=== PATIENT | female | born 1960 | race Caucasian/White ===

== ENCOUNTER 2022-02-12 14:04 | Emergency (ER) | payer BC ==
[~2022-02-12] VITALS: Ht 177.8 cm; Wt 79.4 kg
[2022-02-12 15:46] LABS: BASOPHILS PERCENT AUTO 2 % (0-2); EOSINOPHILS ABSOLUTE AUTO 0.08 K/mm3 (0.00-0.68); EOSINOPHILS PERCENT AUTO 2 % (0-6); Hematocrit 43.2 % (33.0-51.0); Hemoglobin 14.6 g/dL (11.5-16.0); IMMATURE GRAN ABSOLUTE AUTO 0.01 K/mm3 (0.00-0.10); IMMATURE GRAN PERCENT AUTO 0 % (0-1); LYMPHOCYTES ABSOLUTE AUTO 0.82 K/mm3 (0.84-5.20); LYMPHOCYTES PERCENT AUTO 17 % (21-46); MONOCYTES PERCENT AUTO 4 % (4-13); Mean Corpuscular HGB Conc 33.8 g/dL (31.5-36.5); Mean Corpuscular Volume 98 fL (80-100); Mean Platelet Volume 9.3 fL (9.1-12.4); NEUTROPHILS ABSOLUTE AUTO 3.59 K/mm3 (1.96-9.15); NEUTROPHILS PERCENT AUTO 75 % (41-73); Platelet Count 194 K/mm3 (150-400); RDW Coefficient Variation 13.1 % (11.7-14.2); RDW Standard Deviation 46.6 fL (35.1-46.3); Red Blood Cell Count 4.42 M/mm3 (3.80-5.20)
[2022-02-12 16:15] LABS: Albumin, Blood 3.6 g/dL (3.4-5.0); Albumin/Globulin Ratio 0.9 (0.8-1.8); Bilirubin, Total 1.4 mg/dL (0.1-1.0); Bun/Creatinine Ratio 18.6 (12.0-20.0); Calcium, Blood 9.3 mg/dL (8.5-10.1); Creatinine, Blood 0.7 mg/dL (0.40-1.00); Globulin, Blood 4.1 g/dL (2.2-4.0); Potassium, Blood 4.2 mmol/L (3.5-5.5); Total Protein, Blood 7.7 g/dL (6.4-8.2)
[2022-02-12 19:28] LABS: Magnesium, Blood 2.2 mg/dL (1.6-2.4); Thyroid Stimulating Hormone 3.03 uIU/mL (0.360-4.800)
[2022-02-12] MEDS ORDERED: CARV6.25 PO (20:55)
== END 2022-02-12 21:19 | disposition home or self-care (01) ==
LOC: ER 14:04
PROVIDERS: Physician Assistant; Student in an Organized Health Care Education/Training Program
DX: I48.91 Unspecified atrial fibrillation (principal); Z91.14 Patient's other noncompliance with medication regimen; Z79.899 Other long term (current) drug therapy
CPT/HCPCS: 71046; 80053; 83735; 84443; 85025; 93005; 93010

== ENCOUNTER 2022-08-17 15:06 | Inpatient (IN) | payer BC ==
[~2022-08-17] VITALS: Ht 177.8 cm; Wt 93.1 kg
[~2022-08-17 15:06] MED LIST: CARV6.25 PO
[2022-08-17 15:49] LABS: BASOPHILS ABSOLUTE AUTO 0.11 K/mm3 (0.00-0.23); BASOPHILS PERCENT AUTO 2 % (0-2); EOSINOPHILS ABSOLUTE AUTO 0.12 K/mm3 (0.00-0.68); EOSINOPHILS PERCENT AUTO 2 % (0-6); Hematocrit 45.1 % (33.0-51.0); Hemoglobin 15.1 g/dL (11.5-16.0); IMMATURE GRAN ABSOLUTE AUTO 0.02 K/mm3 (0.00-0.10); IMMATURE GRAN PERCENT AUTO 0 % (0-1); LYMPHOCYTES ABSOLUTE AUTO 1.29 K/mm3 (0.84-5.20); LYMPHOCYTES PERCENT AUTO 19 % (21-46); MONOCYTES ABSOLUTE AUTO 0.35 K/mm3 (0.16-1.47); MONOCYTES PERCENT AUTO 5 % (4-13); Mean Corpuscular HGB 33.5 pg (26.0-34.0); Mean Corpuscular HGB Conc 33.5 g/dL (31.5-36.5); Mean Corpuscular Volume 100 fL (80-100); Mean Platelet Volume 10.1 fL (9.1-12.4); NEUTROPHILS ABSOLUTE AUTO 4.87 K/mm3 (1.96-9.15); NEUTROPHILS PERCENT AUTO 72 % (41-73); Platelet Count 274 K/mm3 (150-400); RDW Coefficient Variation 12.3 % (11.7-14.2); RDW Standard Deviation 45.5 fL (35.1-46.3); Red Blood Cell Count 4.51 M/mm3 (3.80-5.20); White Blood Cell Count 6.76 K/mm3 (4.00-11.30)
[2022-08-17 16:03] LABS: Albumin, Blood 3.6 g/dL (3.4-5.0); Albumin/Globulin Ratio 0.8 (0.8-1.8); Bilirubin, Total 1.3 mg/dL (0.1-1.0); Bun/Creatinine Ratio 13.6 (12.0-20.0); Calcium, Blood 9.2 mg/dL (8.5-10.1); Creatinine, Blood 0.74 mg/dL (0.40-1.00); Globulin, Blood 4.5 g/dL (2.2-4.0); Potassium, Blood 3.7 mmol/L (3.5-5.5); Total Protein, Blood 8.1 g/dL (6.4-8.2)
--- NOTE | 2022-08-17 19:30 | NUR ---
ADMISSION NOTE PT ARRIVES TO ROOM VIA GURNEY, ABLE TO TRANSFER SELF TO ROOM WITH STEADY GAIT. DENIES CHEST PAIN OR COMPLAINTS AT THIS TIME. STATES "I JUST DON'T FEEL QUITE RIGHT". TELE SHOWS AFIB IN THE 110'S. 2L O2 TO NC, PT DOES NOT USUALLY WEAR OXYGEN AT HOME. STATES "I STARTED HAVING SOME TROUBLE BREATHING IN THE ER". DENIES HISTORY OF CHF. WILL ADMINISTER MEDICATIONS AND DEVELOP PLAN OF CARE. PT ORIENTED TO ROOM AND CALL LIGHT, NO ACUTE CONCERNS AT THIS TIME.
[2022-08-18 04:19] LABS: BASOPHILS PERCENT AUTO 2 % (0-2); EOSINOPHILS ABSOLUTE AUTO 0.03 K/mm3 (0.00-0.68); EOSINOPHILS PERCENT AUTO 1 % (0-6); Hematocrit 42.9 % (33.0-51.0); Hemoglobin 14.1 g/dL (11.5-16.0); IMMATURE GRAN ABSOLUTE AUTO 0.02 K/mm3 (0.00-0.10); IMMATURE GRAN PERCENT AUTO 0 % (0-1); LYMPHOCYTES ABSOLUTE AUTO 1.14 K/mm3 (0.84-5.20); LYMPHOCYTES PERCENT AUTO 18 % (21-46); MONOCYTES ABSOLUTE AUTO 0.38 K/mm3 (0.16-1.47); MONOCYTES PERCENT AUTO 6 % (4-13); Mean Corpuscular HGB 33.2 pg (26.0-34.0); Mean Corpuscular HGB Conc 32.9 g/dL (31.5-36.5); Mean Corpuscular Volume 101 fL (80-100); Mean Platelet Volume 10.3 fL (9.1-12.4); NEUTROPHILS ABSOLUTE AUTO 4.54 K/mm3 (1.96-9.15); NEUTROPHILS PERCENT AUTO 73 % (41-73); Platelet Count 248 K/mm3 (150-400); RDW Coefficient Variation 12.4 % (11.7-14.2); RDW Standard Deviation 46.6 fL (35.1-46.3); Red Blood Cell Count 4.25 M/mm3 (3.80-5.20); White Blood Cell Count 6.21 K/mm3 (4.00-11.30)
[2022-08-18 04:57] LABS: Calcium, Blood 8.8 mg/dL (8.5-10.1); Creatinine, Blood 0.72 mg/dL (0.40-1.00)
--- NOTE | 2022-08-18 06:07 | NUR ---
SHIFT SUMMARY PT STATES "I'M FEELING A LITTLE BETTER THIS MORNING". STILL C/O SHORTNESS OF BREATH WITH EXERTION. PREFERS TO REST IN THE RECLINER CHAIR AND AMBULATE TO BSC TO VOID. ABLE TO TRANSFER INDEPENDENTLY WITH STEADY GAIT. TELE CONTINUES TO SHOW AFIB, RATE IS MOSTLY IN THE 110'S WITH INCREASE HIGH THE 140'S BRIEFLY WITH ACTIVITY. NO ACUTE CHANGES, WILL PROVIDE BEDSIDE REPORT TO DAY SHIFT RN.
--- NOTE | 2022-08-18 10:59 | NUR ---
Patient is sitting on a chair and alert. Patient tells me about her medical issues, her fears about them and the medical plans going forward. Patient tells me about her recent move to [facility] from [facility]. She states that it has been a culture shock but one that she is starting to adjust to. She shares with me the long list of family members that have in the last couple of years. Her sister, who she was very close with, 6 mos ago. She also talks about her hobbies, the solid support that she receives from her and her constant trust that things will work out. I listened empathically, normalized her experience, reinforced helpful perspectives and provided companionship, grief support and a calming presence. I will continue to remain available to patient and family.
--- NOTE | 2022-08-18 15:35 | NUR ---
PHONE CALL TO MD CALL TO DR JONES REGARDING PT HR SLOWLY TRENDING UP. PLAN TO SWITCH PT TO DIGOXIN AND METOPROLOL. DR JONES TO PUT ORDERS IN. PT RELUCTANT BUT AGREED TO STAY ONE MORE NIGHT. PT O2 WAS REMOVED. 02 SAT 98-99% ON RA. PT DENIES ANY ANGINA, CHEST PRESSURE OR SOB.
--- NOTE | 2022-08-18 16:45 | NUR ---
SHIFT SUMMARY SEE PREVIOUS NOTE FOR UPDATE. PT A/O X4, PLEASANT AND COOPERATIVE. PT WAS TITRATED OFF OF 02 TODAY. O2 SAT >92% ON RA. PT STILL IN AFIB ON TELE. HR SLOWLY INREASED FROM THE 100'S TO THE 130'S TODAY. PT STARTED ON DIGOXIN GTT, CARVEDILOL D/C'D. PT DENIES ANY ANGINA, CHEST PRESSURE OR SOB. PT BP SOFT, BUT MAP >65 T/O SHIFT. PT IV WAS LEAKING, D/C'D WITH TIP INTACT. NEW IV PLACED IN L HAND. PT TEARFUL WHEN TALKING ABOUT HAVING TO STAY ANOTHER NIGHT, BUT STATED SHE WAS OK WITH IT. ECHO HAS NOT BEEN COMPLETED YET. [facility] CONTACTED AND AWARE OF ORDER. WILL CONTINUE TO CARE FOR PT AND REPORT TO ONCOMING RN.
[2022-08-19 04:39] LABS: Bun/Creatinine Ratio 24.5 (12.0-20.0); Calcium, Blood 8.4 mg/dL (8.5-10.1); Creatinine, Blood 0.78 mg/dL (0.40-1.00); Potassium, Blood 3.7 mmol/L (3.5-5.5)
--- NOTE | 2022-08-19 05:28 | NUR ---
PT CONTINUES TO HAVE A DRY, IRRITATING/NAGGING COUGH THAT STARTED YESTERDAY AM, ALTHOGH SEEMINGLY SLIGHTLY IMPROVED WITH USE OF IS, PT UP TO BR INDEPENDENTLY, REMAINS IN AFIB RATE 90-130'S EVEN AT REST, OW NO ISSUES OVERNIGHT AND VSS
--- NOTE | 2022-08-19 07:37 | NUR ---
ASSUMPTION OF CARE PT A/O X4, PLEASANT AND COOPERATIVE. PT HR 100-120'S SINCE BEGINNING OF SHIFT. STILL SHOWING AFIB ON TELE. PT LUNGS CLEAR WITH THE EXCEPTION OF SOME CRACKLES IN THE LLL. PT DENIES ANY ANGINA, CHEST PRESSURE, OR SOB. SHE IS ON RA, SPO2 >92%. PT UP IN CHAIR UPON ASSESSMENT. PT HAS WEAK NON PRODUCTIVE COUGH THAT STARTED YESTERDAY AFTERNOON. OTHER THAN THIS, PT STATING SHE IS FEELING MUCH BETTER THIS AM AND DENIES ANY COMPLAINTS.
--- NOTE | 2022-08-19 10:00 | NUR ---
PHONE CALL TO THIS RN SPOKE WITH DR JONES REGARDING INCREASE DOSE IN LOPRESSOR. DR JONES NOTIFIED PT HR CURRENTLY IN THE 80-90'S. PER , HOLD ADDITIONAL DOSE OF LOPRESSOR. DR JONES NOTIFIED PT CURRENTLY STILL WAITING ON ECHO. PLAN IS STILL TO DC PATIENT THIS AFTERNOON IF PT REMAINS ASYMPTOMATIC AND HR STABLE.
[2022-08-19 10:10] LABS: Digoxin (Lanoxin) 1.04 ug/mL (0.80-2.00)
[2022-08-19] MEDS ORDERED: XARELTO20 MG PO (13:28)
[2022-08-19] MEDS ORDERED: AMOCLA500 PO (13:28)
[2022-08-19] MEDS ORDERED: DIGOX125 MC1 PO (13:28)
[2022-08-19] MEDS ORDERED: FURO20 PO (13:30)
[2022-08-19] MEDS ORDERED: METO50 PO (13:31)
[2022-08-19] MEDS ORDERED: POTA10T PO (13:32)
--- NOTE | 2022-08-19 14:01 | NUR ---
SHIFT SUMMARY/DISCHARGE PT A/O X4, PLEASANT, AND COOPERATIVE. PT REMAINED IN AFIB ON TELE. HR DECREASED TO 90-110 TODAY. PT O2 SAT 98-100% ON RA. ASYMPTOMATIC. BP STABLE. NAD. PT D/C'D TO HOME AT 1400 TODAY.
== END 2022-08-19 14:00 | disposition home or self-care (01) | DRG 291 ==
LOC: ER 15:06 → PCU 17:53 → ER 19:09 → PCU 19:24
PROVIDERS: Physician Assistant; ADMIT Internal Medicine
DX: I50.9 Heart failure, unspecified (principal); J96.01 Acute respiratory failure with hypoxia; I48.20 Chronic atrial fibrillation, unspecified; I11.0 Hypertensive heart disease with heart failure
CPT/HCPCS: 36415; 71045; 71260; 80048; 80053; 80162; 83036; 83880; 84484; 85025; 85379; 90686; 93005; 93010; 93306; 96365; 96374-59; 99285-25; A9270; G0008; G0378; J1160; J7030; Q9967

== ENCOUNTER → 2022-09-13 | Outpatient (CLI) | payer BC ==
[~2022-09-13] MED LIST changes: +AMOCLA500 PO; +DIGOX125 MC1 PO; +FURO20 PO; +METO50 PO; +POTA10T PO; +XARELTO20 MG PO
[2022-09-13 15:33] LABS: Anion Gap 5 mmol/L (6-16); Blood Urea Nitrogen 10 mg/dL (8-24); Bun/Creatinine Ratio 18.2 (12.0-20.0); CHOL/HDL RATIO 4.4; CO2, Blood 28 mmol/L (21-32); Calcium, Blood 9.2 mg/dL (8.5-10.1); Chloride, Blood 105 mmol/L (98-108); Cholesterol 244 mg/dL (50-200); Creatinine, Blood 0.55 mg/dL (0.40-1.00); Glomerular Filtration Rate 103 (60-); Glucose, Blood 123 mg/dL (70-99); HDL Cholesterol 56 mg/dL (>39); LDL/HDL RATIO 2.9; Low Density Lipoprotein Chol 161 mg/dL (0-110); Potassium, Blood 4.3 mmol/L (3.5-5.5); Sodium, Blood 138 mmol/L (136-145); Triglycerides 133 mg/dL (30-160); Very Low Density Lipoprot Chol 26 mg/dL (6-32)
== END | disposition home or self-care (01) ==
LOC: LAB 13:49 → LAB SHORT 13:49
PROVIDERS: Hospitalist
DX: I11.0 Hypertensive heart disease with heart failure (principal); I50.9 Heart failure, unspecified
CPT/HCPCS: 80048; 80061

== ENCOUNTER 2023-08-31 05:43 | Day surgery (SDC) | payer BC ==
[2023-08-31] VITALS (11 sets, daily range): BP systolic 66–122; BP diastolic 48–92
[~2023-08-31] VITALS: Ht 177.8 cm; Wt 85.7 kg
[~2023-08-31 05:43] MED LIST changes: +ATOR40TA PO; +ELIQUIS5 M2 PO; +ENTRESTO 97 MG1 EACH PO; +SPIR25 PO
[2023-08-31] MEDS ORDERED: Heparin Sodium 1000 Units/ML 10ML MDV ONE (06:45)
[2023-08-31] MEDS ORDERED: NS 250 ML IV ONE (06:45)
[2023-08-31] MEDS ORDERED: NS 1,000 ML IV ONE ×2 (06:45→10:05)
[2023-08-31] MEDS ORDERED: NiCARdipine HCL 1,000 MCG/5 ML SYR ONE (06:45)
[2023-08-31] MEDS ORDERED: Nitroglycerin 2 MG/20 ML BTL ONE (06:45)
[2023-08-31] MEDS ORDERED: FentaNYL Citrate 50 MCG/ML 2 ML Injection ONE (10:05)
[2023-08-31] MEDS ORDERED: Midazolam HCl 1MG / ML 2ML Vial ONE (10:05)
--- NOTE | 2023-08-31 11:05 | NUR ---
PT BACK TO RECOVERY ROOM. PT C/O FEELING SOMEWHAT DIZZY. PT GIVEN WATER. BB LOW. DR ZACARIAS NOTIFIED OF DIZZINESS WITH HYPOTENSION. 250 ML BOLUS GIVEN. PT DRINKING WATER AND EATING. DR ZACARIAS IN TO SEE PT. TR BAND TO R WRIST. NO BLEEDING OR HEMATOMA.
[2023-08-31] MEDS ORDERED: NS 500 ML IV ONE (11:14)
[2023-08-31] MEDS ORDERED: METOPROL SUC (11:33)
--- NOTE | 2023-08-31 12:13 | NUR ---
patient sitting in recliner, eating lunch, no C/O right radial artery TR band in place, no hematoma, no bleeding, soft and nontender
--- NOTE | 2023-08-31 13:09 | NUR ---
TR BAND FULLY DEFLATED.
--- NOTE | 2023-08-31 13:42 | NUR ---
PT VERBALIZE D/C INSTRUCTIONS. R RADIAL SITE SOFT, NO BLEEDING. PT GETTING DRESSED. DR ZACARIAS NOTIFIED OF PT'S BP. PT DENIES FEELING DIZZY, LIGHTHEADED. OKAY TO D/C PER DR ZACARIAS.
--- NOTE | 2023-08-31 14:00 | NUR ---
PT DRESSED. IV D/C CATHETER INTACT. TR BAND REMOVED AND DOT CLOTH DRESSING PLACED. WRIST BOARD PLACED OVER SITE. PT WHEELED OUT HOSPTIAL. PT AND SPOUSE DENIES NEEDS AND VERBALIZE UNDERSTANDING OF D/C INSTRUCTIONS.
== END 2023-08-31 16:00 | disposition home or self-care (01) ==
LOC: MHTC 05:43
DX: I25.10 Atherosclerotic heart disease of native coronary artery without angina pectoris (principal); I50.20 Unspecified systolic (congestive) heart failure; I42.0 Dilated cardiomyopathy; I42.8 Other cardiomyopathies; I11.0 Hypertensive heart disease with heart failure; I48.91 Unspecified atrial fibrillation; E78.5 Hyperlipidemia, unspecified; F41.9 Anxiety disorder, unspecified; F32.A Depression, unspecified; I08.1 Rheumatic disorders of both mitral and tricuspid valves
CPT/HCPCS: 76937; 93454; 99152; A9270; C1769; C1894; J1644; J2250; J3010; J7030; J7040; J7050; Q9967

== ENCOUNTER 2025-03-31 08:53 | Inpatient (IN) | payer MEDICARE ==
[~2025-03-31] VITALS: Ht 177.8 cm; Wt 102.0 kg
[~2025-03-31 08:53] MED LIST changes: +METO50ER PO
[2025-03-31 09:33] LABS: BASOPHILS ABSOLUTE AUTO 0.04 K/mm3 (0.00-0.23); BASOPHILS PERCENT AUTO 0 % (0-2); EOSINOPHILS ABSOLUTE AUTO 0.05 K/mm3 (0.00-0.68); EOSINOPHILS PERCENT AUTO 1 % (0-6); Hematocrit 38.1 % (33.0-51.0); Hemoglobin 13.1 g/dL (11.5-16.0); IMMATURE GRAN ABSOLUTE AUTO 0.01 K/mm3 (0.00-0.10); IMMATURE GRAN PERCENT AUTO 0 % (0-1); LYMPHOCYTES ABSOLUTE AUTO 1.17 K/mm3 (0.84-5.20); LYMPHOCYTES PERCENT AUTO 12 % (21-46); MONOCYTES ABSOLUTE AUTO 0.72 K/mm3 (0.16-1.47); MONOCYTES PERCENT AUTO 8 % (4-13); Mean Corpuscular HGB Conc 34.4 g/dL (31.5-36.5); Mean Corpuscular Volume 95 fL (80-100); NEUTROPHILS ABSOLUTE AUTO 7.44 K/mm3 (1.96-9.15); NEUTROPHILS PERCENT AUTO 79 % (41-73); NRBC ABSOLUTE 0.00 K/mm3 (0.00-0.02); NRBC Auto 0.0 /100 WBC (0.0-0.2); Platelet Count 197 K/mm3 (150-400); RDW Coefficient Variation 12.2 % (11.7-14.2); RDW Standard Deviation 42.5 fL (35.1-46.3)
[2025-03-31 09:50] LABS: Alanine Aminotransfer (ALT/SGP 22.0 U/L (12-78); Albumin, Blood 3.3 g/dL (3.4-5.0); Albumin/Globulin Ratio 0.9 (0.8-1.8); Anion Gap 8.0 mmol/L (3-11); Aspartate Aminotrans (AST/SGOT 17.0 U/L (12-37); Bilirubin, Total 1.1 mg/dL (0.1-1.0); Blood Urea Nitrogen 16.0 mg/dL (8-24); CO2, Blood 25.0 mmol/L (21-32); Calcium, Blood 8.3 mg/dL (8.5-10.1); Chloride, Blood 104.0 mmol/L (98-108); Creatinine, Blood 0.79 mg/dL (0.40-1.00); Globulin, Blood 3.8 g/dL (2.2-4.0); Glucose, Blood 126.0 mg/dL (70-99); Potassium, Blood 4.3 mmol/L (3.5-5.5); Sodium, Blood 133.0 mmol/L (136-145); Total Protein, Blood 7.1 g/dL (6.4-8.2)
[2025-03-31] MEDS ORDERED: HYDROmorphone HCl/Pf 1MG SYR IV ONE (10:25)
[2025-03-31 10:29] LABS: Source, Urine Clean Catch
[2025-03-31] MEDS ORDERED: CefOXitin Sodium 2,000 MG in NS 100 ML IV ONE (10:30)
[2025-03-31 10:41] LABS: Bilirubin, Urine Neg (Neg); Glucose Qualitative, Urine Neg (Neg); Ketones, Urine Neg (Neg); Leukocyte Esterase, Urine 3+ (Neg); Protein, Urine Neg (Neg); Specific Gravity, Urine 1.010 (1.003-1.022); Urobilinogen, Urine NORM (Normal)
[2025-03-31 10:55] LABS: Color, Urine Pale Yellow (P-Yellow)
[2025-03-31 10:56] LABS: White Blood Cells, Urine 25-50 /hpf (0-5)
[2025-03-31] MEDS ORDERED: NS 500 ML IV SCH (11:15)
[2025-03-31] MEDS ORDERED: HYDROmorphone HCl/Pf 1MG SYR IV PRN ×2 (12:10→12:50)
[2025-03-31] MEDS ORDERED: Ondansetron HCl 2 MG / ML 2ML Vial IV PRN (12:10)
[2025-03-31] MEDS ORDERED: FLU VACC TS2025(65UP)/MF59C/PF 45 MCG/0.5 ML SYRINGE IM SCH (12:10)
[2025-03-31 15:55] VITALS: BP 123/79
[2025-03-31] MEDS ORDERED: MetroNIDAZOLE 500MG/NS 100 ml 100 ML IV SCH (16:00)
[2025-03-31] MEDS ORDERED: NS 250 ML IV PRN (16:20)
[2025-03-31] MEDS ORDERED: HYDROcodone 5-APAP 325 TAB PO PRN (16:35)
[2025-03-31] MEDS ORDERED: Morphine Sulfate 4 MG/1 ML Injection IV PRN (16:35)
[2025-03-31] MEDS ORDERED: CefTRIAXone Sodium 2,000 MG in NS 100 ML IV SCH (18:00)
--- NOTE | 2025-03-31 18:27 | NUR ---
NEW ADMIT PATIENT TO ROOM 224 FOR ACUTE APPENDICITIS. IV IN L AC LEAKING ON ASSESSMENT. NEW IV PLACED IN MAGGIE. IV ABX INFUSING. REPORTS PAIN IN RLQ, MEDICATED PER EMAR. TOLERATING PO INTAKE, NPO AFTER MIDNIGHT. PATIENT TAKES ELOQUIS FOR A-FIB, SURGERY IN AM. TELE IN PLACE, PER [employer] A-FLUTTER IN THE 70S. AOX4, USES CALL LIGHT APROPRIATELY.
[2025-03-31 19:22] VITALS: BP 99/67
[2025-04-01 00:11] VITALS: BP 113/79
[2025-04-01 04:20] VITALS: BP 106/71
[2025-04-01 05:21] LABS: BASOPHILS ABSOLUTE AUTO 0.03 K/mm3 (0.00-0.23); BASOPHILS PERCENT AUTO 1 % (0-2); EOSINOPHILS ABSOLUTE AUTO 0.08 K/mm3 (0.00-0.68); EOSINOPHILS PERCENT AUTO 1 % (0-6); Hematocrit 34.3 % (33.0-51.0); Hemoglobin 11.6 g/dL (11.5-16.0); IMMATURE GRAN ABSOLUTE AUTO 0.01 K/mm3 (0.00-0.10); IMMATURE GRAN PERCENT AUTO 0 % (0-1); LYMPHOCYTES ABSOLUTE AUTO 1.11 K/mm3 (0.84-5.20); LYMPHOCYTES PERCENT AUTO 18 % (21-46); MONOCYTES ABSOLUTE AUTO 0.49 K/mm3 (0.16-1.47); MONOCYTES PERCENT AUTO 8 % (4-13); Mean Corpuscular HGB Conc 33.8 g/dL (31.5-36.5); Mean Corpuscular Volume 96 fL (80-100); NEUTROPHILS ABSOLUTE AUTO 4.30 K/mm3 (1.96-9.15); NEUTROPHILS PERCENT AUTO 72 % (41-73); NRBC ABSOLUTE 0.00 K/mm3 (0.00-0.02); NRBC Auto 0.0 /100 WBC (0.0-0.2); Platelet Count 161 K/mm3 (150-400); RDW Coefficient Variation 12.3 % (11.7-14.2); RDW Standard Deviation 43.2 fL (35.1-46.3)
[2025-04-01 05:44] LABS: Alanine Aminotransfer (ALT/SGP 16.0 U/L (12-78); Albumin, Blood 2.8 g/dL (3.4-5.0); Albumin/Globulin Ratio 0.8 (0.8-1.8); Anion Gap 6.0 mmol/L (3-11); Aspartate Aminotrans (AST/SGOT 11.0 U/L (12-37); Bilirubin, Total 0.7 mg/dL (0.1-1.0); Blood Urea Nitrogen 12.0 mg/dL (8-24); CO2, Blood 26.0 mmol/L (21-32); Calcium, Blood 8.4 mg/dL (8.5-10.1); Chloride, Blood 105.0 mmol/L (98-108); Creatinine, Blood 0.72 mg/dL (0.40-1.00); Globulin, Blood 3.5 g/dL (2.2-4.0); Glucose, Blood 103.0 mg/dL (70-99); Potassium, Blood 3.8 mmol/L (3.5-5.5); Sodium, Blood 133.0 mmol/L (136-145); Total Protein, Blood 6.3 g/dL (6.4-8.2)
--- NOTE | 2025-04-01 06:10 | NUR ---
SHIFT SUMMARY PT ADMITTED ON 03/31/25 FOR ACUTE APPENDICITIS. PT A&O X4. PAIN MANAGED PER EMAR. PT DENIES N&V. NPO SINCE 0000. PLAN FOR SURGERY TODAY. TELE IN PLACE, GUME @73 PER [employer]RIMP PACKER. CALL LIGHT WITHIN REACH.
[2025-04-01 07:08] VITALS: BP 99/70
--- NOTE | 2025-04-01 08:50 | NUR ---
echo in w/pt.
--- NOTE | 2025-04-01 10:54 | NUR ---
DR PAULSON IN TO SEE PT.
[2025-04-01] MEDS ORDERED: Piperacillin/Tazobactam Sod 3.375 GM in NS 100 ML IV SCH (15:00)
[2025-04-01 15:22] VITALS: BP 108/77
--- NOTE | 2025-04-01 16:42 | NUR ---
PT HAS LOW URINARY OUTPUT PT NPO T/O MOST OF SHIFT. ON CLEAR LIQUIDS NOW. NO MAINTENANCE FLUIDS ORDERED; PT HAS HX OF HEART FAILUTRE. PT HAS ONLY VOIDED 100 ML ELISABETH FLUID THIS SHIFT. NOTIFIED DR PAULSON.
[2025-04-01] MEDS ORDERED: NS 1,000 ML IV SCH (16:50)
--- NOTE | 2025-04-01 17:24 | NUR ---
SUMMARY PT WAS NPO MOST OF DAY. ADVANCED TO CLEAR LIQUIDS THIS AFTERNOON UNTIL MN WHEN PT WILL BE NPO AGAIN D/T PLAN FOR OR TOMORROW. PT HAD LOW URINE OUTPUT THIS SHIFT. DISCUSSED WITH DR PAULSON AND OBTAINED ORDERS FOR NS, WHICH IS NOW INFUSING PER ORDERS. PT PLEASANT AND COOPERATIVE. CALL LIGHT IN REACH.
[2025-04-01 19:48] VITALS: BP 111/78
[2025-04-01 23:42] VITALS: BP 100/69
[2025-04-02] VITALS (14 sets, daily range): BP systolic 100–127; BP diastolic 67–85
--- NOTE | 2025-04-02 05:14 | NUR ---
SHIFT SUMMARY PT ADMITTED ON 03/31/25 FOR ACUTE APPENDICITIS. A&O X4. PAIN MANAGED PER EMAR. PT DENIES N&V. NPO SINCE 0000. PLAN FOR SURGERY TODAY. TELE IN PLACE, GUME @74 PER [employer]. CALL LIGHT WITHIN REACH.
[2025-04-02 05:40] LABS: BASOPHILS ABSOLUTE AUTO 0.04 K/mm3 (0.00-0.23); BASOPHILS PERCENT AUTO 1 % (0-2); EOSINOPHILS ABSOLUTE AUTO 0.14 K/mm3 (0.00-0.68); EOSINOPHILS PERCENT AUTO 3 % (0-6); Hematocrit 32.3 % (33.0-51.0); Hemoglobin 10.8 g/dL (11.5-16.0); IMMATURE GRAN ABSOLUTE AUTO 0.01 K/mm3 (0.00-0.10); IMMATURE GRAN PERCENT AUTO 0 % (0-1); LYMPHOCYTES ABSOLUTE AUTO 1.29 K/mm3 (0.84-5.20); LYMPHOCYTES PERCENT AUTO 26 % (21-46); MONOCYTES ABSOLUTE AUTO 0.48 K/mm3 (0.16-1.47); MONOCYTES PERCENT AUTO 10 % (4-13); Mean Corpuscular HGB Conc 33.4 g/dL (31.5-36.5); Mean Corpuscular Volume 96 fL (80-100); NEUTROPHILS ABSOLUTE AUTO 3.05 K/mm3 (1.96-9.15); NEUTROPHILS PERCENT AUTO 61 % (41-73); NRBC ABSOLUTE 0.00 K/mm3 (0.00-0.02); NRBC Auto 0.0 /100 WBC (0.0-0.2); Platelet Count 166 K/mm3 (150-400); RDW Coefficient Variation 12.1 % (11.7-14.2); RDW Standard Deviation 42.2 fL (35.1-46.3)
[2025-04-02 06:08] LABS: Anion Gap 7.0 mmol/L (3-11); Blood Urea Nitrogen 9.0 mg/dL (8-24); CO2, Blood 26.0 mmol/L (21-32); Calcium, Blood 8.0 mg/dL (8.5-10.1); Chloride, Blood 107.0 mmol/L (98-108); Creatinine, Blood 0.42 mg/dL (0.40-1.00); Glucose, Blood 92.0 mg/dL (70-99); Potassium, Blood 3.8 mmol/L (3.5-5.5); Sodium, Blood 136.0 mmol/L (136-145)
--- NOTE | 2025-04-02 11:37 | NUR ---
DR LEO IN TO SEE PT.
--- NOTE | 2025-04-02 11:46 | NUR ---
dr cruz in to see pt.
--- NOTE | 2025-04-02 12:00 | NUR ---
PT TO PRE OP.
[2025-04-02] MEDS ORDERED: Bupivacaine 0.5% HCl 5 MG/ML 30MLVIAL ONE (12:15)
--- NOTE | 2025-04-02 12:18 | NUR ---
Ambulatory in Day SurgeryPre-Op teaching done. Pt verbalizes understanding. Patient confirms NPO status and agrees with scheduled surgery. History, Chart, Medications and Allergies reviewed before start of procedure. TELEMETRY D/C'D. 3 LEAD EKG STRIP SHOWS A-FLUTTER HR = 80'S
[2025-04-02] MEDS ORDERED: Midazolam HCl 1MG / ML 2ML Vial ONE (12:29)
[2025-04-02] MEDS ORDERED: Midazolam HCl 1MG / ML 2ML Vial IV ONE (12:30)
[2025-04-02] MEDS ORDERED: FentaNYL Citrate 50 MCG/ML 2 ML Injection ONE (12:32)
[2025-04-02] MEDS ORDERED: Rocuronium Bromide 10 MG/ML 5ML Injection IV ONE (12:32)
[2025-04-02] MEDS ORDERED: Lidocaine HCl 4% 5 ML SDA ONE (12:33)
[2025-04-02] MEDS ORDERED: Albuterol 2.5 MG/3 ML VIAL INH PRN (12:35)
[2025-04-02] MEDS ORDERED: Ondansetron HCl 2 MG / ML 2ML Vial IV PRN (12:35)
[2025-04-02] MEDS ORDERED: NS 1,000 ML IV SCH (12:35)
[2025-04-02] MEDS ORDERED: FentaNYL Citrate 50 MCG/ML 2 ML Injection IV PRN ×2 (12:35→12:40)
[2025-04-02] MEDS ORDERED: HYDROmorphone HCl/Pf 1MG SYR IV PRN (12:40)
[2025-04-02] MEDS ORDERED: Ondansetron HCl 2 MG / ML 2ML Vial ONE (12:47)
[2025-04-02] MEDS ORDERED: Dexamethasone Sod Phos 10 MG/ML 1ML VIAL ONE (12:47)
[2025-04-02] MEDS ORDERED: Sugammadex Sodium 200 MG/2ML SDV (100 MG/ML) ONE (12:53)
[2025-04-02] MEDS ORDERED: Ketorolac Tromethamine 30mg Vial ONE (12:53)
[2025-04-02] MEDS ORDERED: Phenylephrine HCl 100 MCG/ML-NS 10MLSYR (1MG/10ML) ONE (13:19)
[2025-04-02] MEDS ORDERED: ePHEDrine Sulfate 50 MG/ML 1ML Injection ONE (13:33)
--- NOTE | 2025-04-02 15:05 | NUR ---
pt arrived to unit from pacu RESTING IN BED, SPOUSE BEDSIDE. CALL LIGHT IN REACH. REPORTS PAIN TOLERABLE. REPORTING DRY THROAT/FEELS AWKWARD TO TALK. DENIES ANY NEEDS AT THIS TIME.
--- NOTE | 2025-04-02 17:04 | NUR ---
summary PT POD 0 LAP APPY W/SUE DRAIN. LAP SITES CDI. SUE DRAINING SM AMT SS DRAINAGE. BULB COMPRESSED. PT HAS NOT BEEN OOB POST OP. TOLERATING CLEAR LIQUIDS. VSS. SPOUSE BEDSIDE.
[2025-04-03 00:03] VITALS: BP 101/67
[2025-04-03 03:20] VITALS: BP 116/74
--- NOTE | 2025-04-03 05:05 | NUR ---
NOC SUMMARY- PT HAS HAD NO PAIN ISSUES. PT HAS BEEN RESTING COMFORTABLY. PT DRESSING INTACT AND C/D/I. SUE DRAINING SS FLUID. PT TOLERATING PO AND VOIDING. PT AMBULATORY. NO NEW ISSUES NOTED. CALL LIGHT IN REACH.
[2025-04-03 07:21] VITALS: BP 110/79
[2025-04-03 11:22] LABS: Hematocrit 34.1 % (33.0-51.0); Hemoglobin 11.2 g/dL (11.5-16.0); Mean Corpuscular HGB Conc 32.8 g/dL (31.5-36.5); Mean Corpuscular Volume 97 fL (80-100); NRBC ABSOLUTE 0.00 K/mm3 (0.00-0.02); NRBC Auto 0.0 /100 WBC (0.0-0.2); Platelet Count 217 K/mm3 (150-400); RDW Coefficient Variation 12.0 % (11.7-14.2); RDW Standard Deviation 42.0 fL (35.1-46.3)
[2025-04-03] MEDS ORDERED: HYDR1TAB94 PO (11:28)
[2025-04-03] MEDS ORDERED: AMOCLA875 PO (11:29)
[2025-04-03] MEDS ORDERED: VISBIOME 112.51 EACH PO (11:29)
[2025-04-03 11:38] VITALS: BP 102/74
[2025-04-03 11:44] LABS: Anion Gap 10.0 mmol/L (3-11); Blood Urea Nitrogen 12.0 mg/dL (8-24); CO2, Blood 22.0 mmol/L (21-32); Calcium, Blood 8.1 mg/dL (8.5-10.1); Chloride, Blood 103.0 mmol/L (98-108); Creatinine, Blood 0.82 mg/dL (0.40-1.00); Glucose, Blood 235.0 mg/dL (70-99); Potassium, Blood 3.4 mmol/L (3.5-5.5); Sodium, Blood 132.0 mmol/L (136-145)
--- NOTE | 2025-04-03 11:54 | NUR ---
DISCHARGE INSTRUCTION REVIEWED WITH PT. STATED UNDERSTANDING. AWAITING RIDE FOR TRANSPORT HOME. IV DC'D INTACT.
--- NOTE | 2025-04-03 13:49 | NUR ---
DISCHARGED TO POV WITH PRINTED INSTRUCT AND HANDWRITTEN RX NORCO.
== END 2025-04-03 14:05 | disposition home or self-care (01) | DRG 398 ==
LOC: ER 08:53 → SURS 08:54 → ERHOLD 08:54 → SURS 16:00
PROVIDERS: Emergency Medicine; Internal Medicine; Surgery; ADMIT Family Medicine
PROC: 3E03329 Introduction of Other Anti-infective into Peripheral Vein, Percutaneous Approach (ICD-10-PCS; 2025-04-01)
PROC: 0DXU4ZW Transfer Omentum to Abdominal Region, Percutaneous Endoscopic Approach (ICD-10-PCS; 2025-04-02)
PROC: 0DTJ4ZZ Resection of Appendix, Percutaneous Endoscopic Approach (ICD-10-PCS; principal; 2025-04-02 12:30)
DX: K35.33 Acute appendicitis with perforation, localized peritonitis, and gangrene, with abscess (principal); E87.1 Hypo-osmolality and hyponatremia; I50.32 Chronic diastolic (congestive) heart failure; I48.91 Unspecified atrial fibrillation; I11.0 Hypertensive heart disease with heart failure; E66.9 Obesity, unspecified; E78.5 Hyperlipidemia, unspecified; Z88.0 Allergy status to penicillin; Z79.01 Long term (current) use of anticoagulants; Z68.32 Body mass index [BMI] 32.0-32.9, adult
CPT/HCPCS: 36415; 74177; 80048; 80053; 81001; 85025; 85027; 87086; 87147; 93005; 93010; 93306; 96361; 96365-59; 96366; 96367; 96375; 96376; 99285-25; A9270; G0378; J0694; J0696; J1100; J1171; J1885; J2003; J2250; J2371; J2405; J2543; J2704; J3010; J7030; J7050; J7120; Q9967

== ENCOUNTER 2025-05-21 12:48 | Day surgery (SDC) | payer MEDICARE ==
[2025-05-21] VITALS (13 sets, daily range): BP systolic 88–118; BP diastolic 59–78
[~2025-05-21] VITALS: Ht 177.8 cm; Wt 98.0 kg
[~2025-05-21 12:48] MED LIST changes: +AMOCLA875 PO; +HYDR1TAB94 PO; +VISBIOME 112.51 EACH PO
[2025-05-21] MEDS ORDERED: NS 1,000 ML IV ONE (12:59)
--- NOTE | 2025-05-21 14:30 | NUR ---
PATIENT ADMITTED TO [facility] FOR CARDIOVERSION WITH ANESTHESIA. MEDS AND HISTORY REVIEWED. VSS. /ANESTHESIA IN TO SEE PATIENT AT 1340. DR DE SOUZA IN AT 1355. TIME OUT COMPLETED AT 1400. SYNCH. CARDIOVERSION WITH 200J, 274J DELIVERED AT 1410. ANESTHESIA ENDED AT 1416. PATIENT AWAKE AND ALERT AT 1420. VITAL SIGNS REMAIN STABLE. PATIENT DENIES COMPLAINTS. CARDIOVERSION SUCCESSFUL, PATIENT COVERTED FROM AFIB TO SINUS RHYTHM, RATE 50-60'S. POST EKG COMPLETED. FOLLOW UP APPOINTMENT MADE.
--- NOTE | 2025-05-21 15:10 | NUR ---
VERBAL AND WRITTEN DISCHARGE INSTRUCTIONS GIVEN TO PATIENT WITH CLEAR UNDERSTANDING. PATIENT DENIES COMPLAINTS. VSS. PATIENT OOB TO CHAIR, LOLY WELL. IV DC'D INTACT. PATIENT DC'D HOME IN STABLE CONDITION AT 1500. PATIENT ESCORTED TO CAR VIA WHEELCHAIR, PATIENT'S IS DRIVING PT HOME.
[2025-05-21] MEDS ORDERED: Propofol 10mg/ml 20 ml Vial (Procedural) IV ONE (16:38)
== END 2025-05-21 22:45 | disposition home or self-care (01) ==
LOC: MHTC 12:48
DX: I48.19 Other persistent atrial fibrillation (principal); I11.0 Hypertensive heart disease with heart failure; I50.20 Unspecified systolic (congestive) heart failure; Z79.01 Long term (current) use of anticoagulants
CPT/HCPCS: 92960; 93005; 93010; J2704; J7030